=== PATIENT | female | born 1990 | race Two or more races ===

== ENCOUNTER 2019-10-04 05:54 | Emergency (ER) | payer MEDICAID ==
[~2019-10-04] VITALS: Ht 157.5 cm; Wt 65.8 kg
[2019-10-04 06:02] VITALS: BP 109/71
[2019-10-04] MEDS ORDERED: IPRATROPIUM BROM 0.5 MG/2.5ML INH SOL ONE (07:40)
[2019-10-04] MEDS ORDERED: ALBUTEROL SULF 2.5 MG/0.5ML(0.5%) NEB SOLN ONE (07:40)
[2019-10-04] MEDS ORDERED: methylPREDNISolone SOD SUCC 125 MG/2 ML VL IM ONE (07:45)
[2019-10-04] MEDS ORDERED: IPRATROPIUM BROM 0.5 MG/2.5ML INH SOL NEB ONE (07:45)
[2019-10-04] MEDS ORDERED: ALBUTEROL SULF 2.5 MG/0.5ML(0.5%) NEB SOLN NEB ONE (07:45)
[2019-10-04] MEDS ORDERED: KETOROLAC TROMETH 60MG/2ML VIAL IM ONE (08:00)
== END 2019-10-04 08:34 | disposition home or self-care (01) ==
LOC: ER 05:54
DX: S33.5XXA Sprain of ligaments of lumbar spine, initial encounter (principal); X58.XXXA Exposure to other specified factors, initial encounter; Y93.89 Activity, other specified; Y99.8 Other external cause status; Y92.89 Other specified places as the place of occurrence of the external cause
CPT/HCPCS: 81002; 81025; 96372; 99283; J1885

== ENCOUNTER 2024-05-29 10:41 | Emergency (ER) | payer BC ==
[~2024-05-29] VITALS: Ht 154.9 cm; Wt 72.4 kg
[~2024-05-29 10:41] MED LIST: IBUP1TAB5 PO
[2024-05-29 13:54] VITALS: BP 118/72; PULSE 76; RESP 16; TEMP 99; O2SAT 99
[2024-05-29] MEDS ORDERED: CEPH500C PO (14:21)
== END 2024-05-29 14:27 | disposition home or self-care (01) ==
LOC: ER 10:41
DX: H00.011 Hordeolum externum right upper eyelid (principal); Z79.1 Long term (current) use of non-steroidal anti-inflammatories (NSAID); Z79.2 Long term (current) use of antibiotics

== ENCOUNTER 2024-09-13 16:57 | Emergency (ER) | payer BC ==
[~2024-09-13] VITALS: Ht 154.9 cm; Wt 73.9 kg
[~2024-09-13 16:57] MED LIST changes: +CEPH500C PO
[2024-09-13 18:20] LABS: Urine Bacteria None Seen /hpf (None Seen)
[2024-09-13 18:35] VITALS: BP 113/74; PULSE 64; RESP 17; TEMP 98.1; O2SAT 100
[2024-09-13 18:55] LABS: Urine Blood TRACE /uL (Negative); Urine Clarity Turbid (Clear); Urine Color Yellow (Yellow); Urine Mucus FEW (None Seen); Urine Protein, UAD TRACE (Negative); Urine Specific Gravity 1.029 (1.001-1.035); Urine Urobilinogen Normal (Negative); Urine WBC 7 /hpf (0 - 5); Urine pH 5.5 (5.0-9.0)
[2024-09-13] MEDS: KETOROLAC TROMETH 60MG/2ML VIAL IM ONE (20:22)
[2024-09-13] MEDS ORDERED: TIZA4TAB9 PO (20:55)
[2024-09-13] MEDS ORDERED: DICL50TA2 PO (20:55)
--- NOTE | 2024-09-13 20:55 | ED.PDOC ---
Back pain HPI HPI Comments This is a 34-year-old female presents to the ED chief complaint low back pain. Patient states symptoms started around 5 days ago and has been case with the getting worse over the past 24 hours with little relief from [id number] medications, heat and ice and stretching. Patient states unknown injury. Patient denies numbness, weakness, saddle anesthesia, or loss of bowel and bladder control. Chief Complaint: Back Pain Time Seen by MD: 18:20 Primary Care Provider: Deborah Morris Notes: Nurses Notes, Medications, Allergies Allergies: Coded Allergies: NO KNOWN ALLERGIES (Unverified , 07/02/14) Home Meds Active Scripts Tizanidine Hydrochloride (Zanaflex) 4 Mg Tab, 1 TAB PO QPM PRN for 7 Days, #7 TAB Prov:HERNANDEZ SHEETS IMAGING CENTER MANAGER 09/13/24 Diclofenac Potassium (Diclofenac Potassium) 50 Mg Tab, 1 TAB PO BID PRN for 7 Days, #14 TAB Prov:HERNANDEZ SHEETS IMAGING CENTER MANAGER 09/13/24 Cephalexin Monohydrate (Cephalexin) 500 Mg Cap, 1 CAP PO QID for 5 Days, #20 CAP 0 Refills Prov:GABBY CHRISTIANSEN WORKFORCE INVESTMENT ACT CAREER MANAGER 05/29/24 Ibuprofen Micronized (Ibuprofen) 600 Mg Tab, 600 MG PO Q8HPRN PRN, #20 TAB Prov:RADHA MYERS PAC 03/03/24 Mode of Arrival: Ambulatory Past Medical History PAST MEDICAL HISTORY: Denies Surgical History: Denies all surgeries DATABASE ADMINISTRATION ASSOCIATE History: No Pertinent DATABASE ADMINISTRATION ASSOCIATE History Family History Family History: Unknown Social History Smoker: Non-Smoker Lives In: Home Constitutional: denies: chills, diaphoresis, fatigue, fever, malaise, sweats, weakness, others EENTM: denies: blurred vision, double vision, ear bleeding, ear discharge, ear drainage, ear pain, ear ringing, eye pain, eye redness, hearing loss, mouth pain, mouth swelling, nasal discharge, nose bleeding, nose congestion, nose pain, photophobia, tearing, throat pain, throat swelling, voice changes, others Respiratory: denies: cough, hemoptysis, orthopnea, SOB at rest, shortness of breath, SOB with excertion, stridor, wheezing, others Cardiovascular: denies: chest pain, dizzy spells, diaphoresis, Dyspnea on exertion, edema, irregular heart beat, left arm pain, lightheadedness, palpitations, PND, syncope, others Gastrointestinal: denies: abdomen distended, abdominal pain, blood streaked bowels, constipated, diarrhea, dysphagia, difficulty swallowing, hematemesis, melena, nausea, poor appetite, poor fluid intake, rectal bleeding, rectal pain, vomiting, others Genitourinary: denies: abnormal vagina bleeding, burning, dyspareunia, dysuria, flank pain, frequency, hematuria, incontinence, pain, , vagina discharge, urgency, others Neurological: denies: dizziness, fainting, headache, left sided numbness, left sided weakness, numbness, paresthesia, pre-existing deficit, right sided numbness, right sided weakness, seizure, speech problems, tingling, tremors, w eakness, others Musculoskeletal: reports: back pain; denies: gout, joint pain, joint swelling, muscle pain, muscle stiffness, neck pain, others Integumetry: denies: bruises, change in color, change in hair/nails, dryness, laceration, lesions, lumps, rash, wounds, others Allergic/Immunocompromised: denies: Difficulty Healing, Frequent Infections, Hives, Itching, others Hematologic/Lymphatic: denies: anemia, blood clots, easy bleeding, easy bruising, swollen glands, others Endocrine: denies: excessive hunger, excessive sweating, excessive thirst, excessive urination, flushing, intolerance to cold, intolerance to heat, unexplained weight gain, unexplained weight loss, others Psychiatric: denies: anxiety, bipolar disorder, depression, hopeless, panic disorder, schizophrenia, sleepless, suicidal, others Physical Exam General Appearance: No Apparent Distress, Normal HEENT: Pharynx Normal Neck: Full Range of Motion, Non-Tender Respiratory: Lungs Clear, No Respiratory Distress, Normal Breath Sounds Cardiovascular: No Murmur, Normal Peripheral Pulses, Regular Rate/Rhythm Breast Exam: Deferred Gastrointestinal: Non Tender, Soft Genitalia: Deferred Pelvic: Deferred Rectal: Deferred Extremities: Normal capillary refill, Normal inspection, Normal range of motion, Non-tender, No pedal edema Musculoskeletal : Location: Bilateral Extremity Location: Back (No tenderness, crepitus or step-offs along lumbar spine L1 through L5. Noted moderate spasms bilateral paraspinal muscles L1 through L5. Strength sensory and motion intact distal. Negative straight leg raise bilateral. Positive pedal pulses bilateral.) Apperance: Normal Neurologic: Alert, return to vendor II-XII nml as Tested, No Motor Deficits, Normal Affect, Normal Mood, No Sensory Deficits Cerebellar Function: Normal Reflexes: Normal Skin: Dry, Normal Color, Warm Lymphatic: No Adenopathy Was a procedure done? Was a procedure done?: No Back Pain Differential Dx Differential Diagnosis: Fracture, Musculoskeletal Pain X-Ray, Labs, Meds, VS Vital Signs Date Time Temp Pulse Resp B/P (MAP) Pulse Ox O2 Delivery O2 Flow Rate FiO2 09/13/24 18:35 98.1 64 17 113/74 (87) 100 98.1 09/13/24 18:35 64 17 100 Room Air 09/13/24 17:22 98.1 64 17 113/74 (87) 100 Lab Test 09/13/24 17:20 Range/Units Urine Color Yellow Yellow Urine Clarity Turbid H Clear Urine pH 5.5 5.0-9.0 Urine Specific [place] 1.029 1.001-1.035 Urine Protein Trace H Negative Urine Ketones Negative Negative Urine Blood Trace H Negative /uL Urine Nitrite Negative Negative Urine Bilirubin Negative Negative Urine Urobilinogen Normal Negative mg/dL Urine Leukocyte Esterase Negative Negative /uL Urine RBC 2 0 - 4 /hpf Urine WBC 7 0 - 5 /hpf Urine Squamous Epithelial Cells Mod <5 /hpf Urine Bacteria None seen None Seen /hpf Urine Mucus Few None Seen Urine Glucose Normal Normal mg/dL X-Ray, Labs, Meds, VS Comment Patient given Toradol 60 mg IM reports improvement in pain with improvement in function. Patient requesting discharge at this time. Trial tizanidine and ibuprofen script to her pharmacy on file. Advised to follow up with PCP in 2-3 days as necessary consider further imaging such as MRI if symptoms continue or worsening. ER return precautions given loss of bowel and bladder control or saddle anesthesia. Patient indicated understanding agrees with discharge plan of care. Urinalysis negative Time of 1ST Reevaluation: 20:49 Reevaluation 1ST: Improved Patient Education/Counseling: Diagnosis, Treatment, Prognosis, Need For Follow Up Family Education/Counseling: No Family Present Departure 1 Departure Time of Disposition: 20:53 Impression: Primary Impression: Musculoskeletal pain Disposition: 01 HOME / SELF CARE / HOMELESS Condition: Stable e-Prescriptions Tizanidine Hydrochloride (Zanaflex) 4 Mg Tab 1 TAB PO QPM PRN for 7 Days, #7 TAB Prov: HERNANDEZ SHEETS 09/13/24 Diclofenac Potassium (Diclofenac Potassium) 50 Mg Tab 1 TAB PO BID PRN for 7 Days, #14 TAB Prov: HERNANDEZ SHEETS 09/13/24 Discharged With: Spouse Critical Care Note Critical Care Time?: No Stability Stability form required: No HERNANDEZ SHEETS Sep 13, 2024 20:55
== END 2024-09-13 21:01 | disposition home or self-care (01) ==
LOC: ER 16:57
DX: M54.50 Low back pain, unspecified (principal); Z79.899 Other long term (current) drug therapy
CPT/HCPCS: 81001; 96372; 99283; J1885

== ENCOUNTER 2025-06-23 12:22 | Emergency (ER) | payer BC ==
[~2025-06-23] VITALS: Ht 167.6 cm; Wt 66.7 kg
--- NOTE | 2025-06-23 14:48 | ED.PDOC ---
History of Present Illness HPI Comments 35y F who presents to the ED for chief complaint of lower pelvic pain. Pt states she has been having diffuse pelvic pain described as cramping with associated nausea and fever for the past 1x week with associated diffuse back pain. Denies diarrhea, constipation, dysuria abnormal vaginal bleeding or discharge. Pt states she has had these symptoms in the past when her IUD became dislodged and she suffered an ectopic requiring right salpingectomy. Pt otherwise has noted stable vitals with temp of 98.6 F, RR 18, heart rate 91, BP of 126/78 and 02 sat of 97% on room air. Pt otherwise denies any other symptoms. Chief Complaint: Flu like Time Seen by MD: 14:46 Primary Care Provider: Deborah Morris Notes: Medications, Allergies Allergies: Coded Allergies: NO KNOWN ALLERGIES (Unverified , 07/02/14) Home Meds Active Scripts Ibuprofen Micronized (Ibuprofen) 800 Mg Tab, 800 MG PO Q8HP PRN, #30 TAB Prn pain or fever. Take with food. Prov:YOLANDA HIGHTOWER MD 06/23/25 Ciprofloxacin HCl (Ciprofloxacin Hydrochlori) 500 Mg Tab, 500 MG PO BID for 7 Days, #14 TAB Prov:YOLANDA HIGHTOWER MD 06/23/25 Cephalexin Monohydrate (Cephalexin) 500 Mg Cap, 1 CAP PO QID for 5 Days, #20 CAP 0 Refills Prov:GABBY CHRISTIANSEN ESCALATOR MECHANIC 05/29/24 Ibuprofen Micronized (Ibuprofen) 600 Mg Tab, 600 MG PO Q8HPRN PRN, #20 TAB Prov:RADHA MYERS PAC 03/03/24 Information Source: Patient, Significant Other Mode of Arrival: Ambulatory Past Medical History PAST MEDICAL HISTORY: Denies WORK ENVIRONMENT SAFETY INSPECTOR History: Ectopic , Other (R salpingectomy, ectopic ) Family History Family History: Reviewed,noncontributory to illness, Unknown Social History Smoker: Non-Smoker Alcohol: Denies ETOH Use Drugs: Denies Drug Use Lives In: Home All Other Systems: Reviewed and Negative (see HPI) Physical Exam General Appearance: No Apparent Distress HEENT: Other (Pupils and face symmetric. Moist mucous membranes.) Neck: Full Range of Motion, Normal Inspection Respiratory: Lungs Clear, No Accessory Muscle Use, No Respiratory Distress, Normal Breath Sounds Cardiovascular: No Edema, No JVD, Regular Rate/Rhythm Breast Exam: Deferred Gastrointestinal: Soft, Suprapubic, Tenderness Genitalia: Deferred Pelvic: Deferred Rectal: Deferred Extremities: Normal inspection, Normal range of motion, Non-tender, No pedal edema Neurologic: Alert (Oriented x4), Normal Affect, Normal Mood, Other (Ambulatory) Cerebellar Function: NOT DONE Reflexes: NOT DONE Skin: Dry, Normal Color, Warm Lymphatic: NOT DONE Was a procedure done? Was a procedure done?: No Differential Dx Considerations may include: ectopic , UTI, , dislodged IUD, ovarian cyst, ovarian torsion, among others X-Ray, Labs, Meds, VS Vital Signs Date Time Temp Pulse Resp B/P (MAP) Pulse Ox O2 Delivery O2 Flow Rate FiO2 06/23/25 15:31 84 19 103/71 06/23/25 15:27 84 16 98 Room Air 06/23/25 15:27 98.4 84 16 103/71 (82) 98 98.4 06/23/25 12:29 98.6 91 18 126/78 97 98.6 Lab Test 06/23/25 16:30 06/23/25 14:41 Range/Units Urine Color Yellow Yellow Urine Clarity Turbid H Clear Urine pH 6.0 5.0-9.0 Urine Specific [place] 1.015 1.001-1.035 Urine Protein Trace H Negative Urine Ketones 3+ H Negative Urine Blood 1+ H Negative /uL Urine Nitrite Negative Negative Urine Bilirubin Negative Negative Urine Urobilinogen 2 H Negative mg/dL Urine Leukocyte Esterase 3+ Negative /uL Urine RBC 6 0 - 4 /hpf Urine Microscopic WBC 79 H 0-5 /HPF Urine Squamous Epithelial Cells Few <5 /hpf Urine Bacteria Few H None Seen /hpf Urine Mucus Few None Seen Urine Glucose Normal Normal mg/dL Urine Test Negative Negative White Blood Count 10.5 4.4-10.8 10^3/uL Red Blood Count 4.85 4.0-5.20 10^6/uL Hemoglobin 14.4 12.2-16.2 g/dL Hematocrit 41.7 36.0-46.0 % Mean Corpuscular Volume 86.0 80.0-100.0 fL Mean Corpuscular Hemoglobin 29.7 28.0-32.0 pg Mean Corpuscular Hemoglobin Concent 34.6 32.0-36.0 g/dL Red Cell Distribution Width 13.5 11.8-14.3 % Platelet Count 276 140-450 10^3/uL Mean Platelet Volume 8.8 6.9-10.8 fL Neutrophils (%) (Auto) 66.5 37.0-80.0 % Lymphocytes (%) (Auto) 20.6 10.0-50.0 % Monocytes (%) (Auto) 11.5 0.0-12.0 % Eosinophils (%) (Auto) 0.7 0.0-7.0 % Basophils (%) (Auto) 0.7 0.0-2.0 % Neutrophils # (Auto) 7.0 1.6-8.6 10 ^3/uL Lymphocytes # (Auto) 2.2 0.4-5.4 10 ^3/uL Monocytes # (Auto) 1.2 0-1.3 10 ^3/uL Eosinophils # (Auto) 0.1 0-0.8 10 ^3/uL Basophils # (Auto) 0.1 0-0.2 10 ^3/uL Nucleated Red Blood Cells 0.1 % Sodium Level 136 136-145 mmol/L Potassium Level 4.0 3.5-5.1 mmol/L Chloride Level 99 98-107 mmol/L Carbon Dioxide Level 26 20-31 mmol/L Anion Gap 11 5-15 Blood Urea Nitrogen 7 L 9-23 mg/dL Creatinine 0.76 0.550-1.02 mg/dL Glomerular Filtration Rate Calc 103 >90 mL/min BUN/Creatinine Ratio 9.2 L 10.0-20.0 Serum Glucose 80 74-106 mg/dL Calcium Level 9.6 8.7-10.4 mg/dL Current Medications Medications (Trade) Dose Ordered Sig/Doe Route Start Time Stop Time Status Last Admin Sodium Chloride 1,000 ml @ 1,000 mls/hr Q1H ONCE IV 06/23/25 14:45 06/23/25 15:44 DC 06/23/25 15:30 Morphine Sulfate 4 mg ONCE ONCE IV 06/23/25 14:45 06/23/25 14:46 DC 06/23/25 15:31 Ondansetron HCl (Zofran) 4 mg ONCE ONCE IV 06/23/25 14:45 06/23/25 14:46 DC 06/23/25 15:[address] - [address] Ph: [phone] DIAGNOSTIC IMAGING Diagnostic Imaging Report : [id number] Signed PATIENT: BARBARA VAZQUEZ ACCT: [id number] UNIT: [id number] : 1990 LOC: ER ROOM / BED: / AGE / SEX: 35 / F ADM STATUS: REG ER SERVICE [id number] ORDERING PHYSICIAN: YOLANDA HIGHTOWER MD PROCEDURE(s): PELUS - PELVIC REASON: pelvic pain ORDER NUMBER(s): [id number], ACCESSION NUMBER(s): [id number] INDICATION: pelvic pain TECHNIQUE: Multiple real-time grayscale transabdominal and transvaginal sonographic images along with color and duplex Doppler of the uterus and ovaries were obtained. COMPARISON: None FINDINGS: The uterus measures 7 x 3.7 x 4.6 cm. The endometrial stripe measures 0.3 cm. IUD noted in the endometrial canal. The right ovary measures 3.3 x 2.6 x 2.6 cm. Volume of the right ovary is 11.7 cc. A 2 by 1.4 x 1.9 cm complex nodule in the right ovary may represent an involuting follicle. Hypoechoic structure in the right ovary with peripheral vascularity. The left ovary measures 2.7 x 1.8 x 1.9 cm. Volume a left ovary is 4.9 cc Subsequent color and duplex Doppler interrogation of the ovaries demonstrated symmetric vascular flow to both ovaries, though this does not exclude the possibility of torsion due to the dual blood supply. IMPRESSION: 1. IUD noted in the endometrial canal. 2. Hypoechoic structure in the right ovary with peripheral vascularity. 3. This may represent a corpus luteum. 4. A 2 by 1.4 x 1.9 cm complex nodule in the right ovary may represent an involuting follicle. X-Ray, Labs, Meds, VS Comment 45-year-old female with history of IUD dislodgement, ectopic and right salpingectomy complaining of pelvic pain, back pain, fever and nausea for the past week Vitals unremarkable Exam remarkable for suprapubic tenderness to palpation Rhythm strip independently interpreted by me: Sinus rhythm, rate 91, no ectopy. Pelvic ultrasound shows IUD properly placed, right ovarian probable corpus luteum and involuting follicle CBC and metabolic panel unremarkable, UA abnormal consistent with UTI, urine negative Patient treated with the following in the ED: 1 L 0.9 normal saline IV bolus, morphine 4 mg IV, Zofran 4 mg IV, Levaquin 500 mg IV On re-evaluation, pain has improved. Vitals were stable. Patient appears stable for discharge with close outpatient follow-up with her primary doctor or OBGYN. Rx Cipro, ibuprofen, Zofran Time of 1ST Reevaluation: 18:23 Reevaluation 1ST: Improved Patient Education/Counseling: Diagnosis, Treatment, Need For Follow Up Family Education/Counseling: Diagnosis, Treatment, Need For Follow Up SEPSIS Sepsis Screen Date sepsis recognized/suspect: Jun 23, 2025 Time Sepsis recognized/suspect: 1229 Recent Procedure: No On Antibiotic Therapy: No Respiratory Rate >20: No Heart Rate >90: Yes Temp<36 C (96.8 F) or >38.3 C: No SBP <90 or MAP <65 mmHG: No New Acute Mental Status Change: No Is the patient on CPAP, BIPAP,: No SEPSIS EXCLUSION NOTE: Sepsis Exclusion Note: Patient presents with SIRS criteria, but the SIRS response is attributed to [pain ], not sepsis. Sepsis bundle is not initiated at this time, due to this reason. Further management will focus on the treatment of the above condition (s). Physician Orders Pelvic (06/23/25 14:37) Transvaginal Us Non Ob (06/23/25 ) Vital Signs Date Time Temp Pulse Resp B/P (MAP) Pulse Ox O2 Delivery O2 Flow Rate FiO2 06/23/25 15:31 84 19 103/71 06/23/25 15:27 84 16 98 Room Air 06/23/25 15:27 98.4 84 16 103/71 (82) 98 98.4 06/23/25 12:29 98.6 91 18 126/78 97 98.6 Laboratory Tests Test 06/23/25 14:41 White Blood Count 10.5 10^3/uL (4.4-10.8) Medications Medications Dose Ordered Sig/Doe Route Start Time Stop Time Status Last Admin Dose Admin Morphine Sulfate 4 mg ONCE ONCE IV 06/23/25 14:45 06/23/25 14:46 DC 06/23/25 15:31 Ondansetron HCl 4 mg ONCE ONCE IV 06/23/25 14:45 06/23/25 14:46 DC 06/23/25 15:30 Sodium Chloride 1,000 ml @ 1,000 mls/hr Q1H ONCE IV 06/23/25 14:45 06/23/25 15:44 DC 06/23/25 15:30 Departure 1 Departure Time of Disposition: 19:23 Impression: Primary Impression: UTI (urinary tract infection) Disposition: HOME / SELF CARE / HOMELESS Condition: Stable Additional Instructions: Your blood tests were unremarkable. Your urine test showed you have a urinary tract infection. test was negative. This is likely to be the cause of your symptoms. Your ultrasound was unremarkable, showing the IUD properly placed within the endometrial canal. There was no evidence of ectopic . I have enclosed the ultrasound report below to show your primary doctor or OBGYN when you follow-up. I have prescribed antibiotics, pain and nausea medication. Follow-up with your primary doctor or OBGYN in 1-2 days. Return to ER for persistent or worsening symptoms. [place] [address] Ph: [phone] DIAGNOSTIC IMAGING Diagnostic Imaging Report : [id number] Signed PATIENT: BARBARA VAZQUEZ ACCT: [id number] UNIT: [id number] : 1990 LOC: ER ROOM / BED: / AGE / SEX: 35 / F ADM STATUS: REG ER SERVICE [id number] ORDERING PHYSICIAN: YOLANDA HIGHTOWER MD PROCEDURE(s): PELUS - PELVIC REASON: pelvic pain ORDER NUMBER(s): [id number], ACCESSION NUMBER(s): [id number] INDICATION: pelvic pain TECHNIQUE: Multiple real-time grayscale transabdominal and transvaginal sonographic images along with color and duplex Doppler of the uterus and ovaries were obtained. COMPARISON: None FINDINGS: The uterus measures 7 x 3.7 x 4.6 cm. The endometrial stripe measures 0.3 cm. IUD noted in the endometrial canal. The right ovary measures 3.3 x 2.6 x 2.6 cm. Volume of the right ovary is 11.7 cc. A 2 by 1.4 x 1.9 cm complex nodule in the right ovary may represent an involuting follicle. Hypoechoic structure in the right ovary with peripheral vascularity. The left ovary measures 2.7 x 1.8 x 1.9 cm. Volume a left ovary is 4.9 cc Subsequent color and duplex Doppler interrogation of the ovaries demonstrated symmetric vascular flow to both ovaries, though this does not exclude the possibility of torsion due to the dual blood supply. IMPRESSION: 1. IUD noted in the endometrial canal. 2. Hypoechoic structure in the right ovary with peripheral vascularity. 3. This may represent a corpus luteum. 4. A 2 by 1.4 x 1.9 cm complex nodule in the right ovary may represent an involuting follicle. e-Prescriptions Ibuprofen Micronized (Ibuprofen) 800 Mg Tab 800 MG PO Q8HP PRN, #30 TAB Prn pain or fever. Take with food. Prov: YOLANDA HIGHTOWER MD 06/23/25 Ciprofloxacin HCl (Ciprofloxacin Hydrochlori) 500 Mg Tab 500 MG PO BID for 7 Days, #14 TAB Prov: YOLANDA HIGHTOWER MD 06/23/25 Discharged With: Significant Other Critical Care Note Critical Care Time?: No Stability Stability form required: No Heart Score Heart Score: Heart Score Response (Comments) Value History N/A 0 EKG N/A 0 Age N/A 0 Risk Factors N/A 0 Troponin N/A 0 Total 0 I personally scribed for YOLANDA HIGHTOWER MD ([email or web address]) on 06/23/25 at 14:48. Electronically submitted by Gama Cárdenas ([email or web address]). YOLANDA HIGHTOWER MD Jun 23, 2025 14:48
[2025-06-23 15:03] LABS: Hematocrit 41.7 % (36.0-46.0); Hemoglobin 14.4 g/dL (12.2-16.2); Mean Corpuscular Hemoglobin 29.7 pg (28.0-32.0); Mean Corpuscular Volume 86.0 fL (80.0-100.0); Nucleated Red Blood Cells % 0.1 %
[2025-06-23 15:08] LABS: Chloride 99 mmol/L (98-107); Potassium 4.0 mmol/L (3.5-5.1)
[2025-06-23 15:09] LABS: Anion Gap 11 (5-15); Calcium 9.6 mg/dL (8.7-10.4); Carbon Dioxide 26 mmol/L (20-31)
[2025-06-23 15:14] LABS: BUN/Creatinine Ratio 9.2 (10.0-20.0); Blood Urea Nitrogen 7 mg/dL (9-23); Glucose 80 mg/dL (74-106); Sodium 136 mmol/L (136-145)
[2025-06-23 15:27] VITALS: TEMP 98.4; O2SAT 98
[2025-06-23] MEDS: MORPHINE SULFATE 4 MG/ML SYR/VIAL ONE (15:30)
[2025-06-23] MEDS: ONDANSETRON HCL 4 MG/2 ML VIAL IV ONE (15:30)
[2025-06-23] MEDS: ONDANSETRON HCL 4 MG/2 ML VIAL ONE (15:30)
[2025-06-23] MEDS: SODIUM CHLORIDE 0.9% 1,000 ML IV ONE (15:30)
[2025-06-23 15:31] VITALS: BP 103/71; PULSE 84; RESP 19
[2025-06-23] MEDS: MORPHINE SULFATE 4 MG/ML SYR/VIAL IV ONE (15:31)
[2025-06-23 16:48] LABS: Urine Protein, UAD TRACE (Negative)
[2025-06-23] MEDS ORDERED: CIPR-214 PO (18:28)
[2025-06-23] MEDS ORDERED: IBUP-1455 PO (18:28)
--- NOTE | 2025-06-23 18:57 | DVH ---
INDICATION: pelvic pain TECHNIQUE: Multiple real-time grayscale transabdominal and transvaginal sonographic images along with color and duplex Doppler of the uterus and ovaries were obtained. COMPARISON: None FINDINGS: The uterus measures 7 x 3.7 x 4.6 cm. The endometrial stripe measures 0.3 cm. IUD noted in the endometrial canal. The right ovary measures 3.3 x 2.6 x 2.6 cm. Volume of the right ovary is 11.7 cc. A 2 by 1.4 x 1.9 cm complex nodule in the right ovary may represent an involuting follicle. Hypoechoic structure in t he right ovary with peripheral vascularity. The left ovary measures 2.7 x 1.8 x 1.9 cm. Volume a left ovary is 4.9 cc Subsequent color and duplex Doppler interrogation of the ovaries demonstrated symmetric vascular flow to both ovaries, though this does not exclude the possibility of torsion due to the dual blood suppl y. IMPRESSION: 1. IUD noted in the endometrial canal. 2. Hypoechoic structure in the right ovary with peripheral vascularity. 3. This may represent a corpus luteum. 4. A 2 by 1.4 x 1.9 cm complex nodule in the right ovary may represent an involuting follicle.
== END 2025-06-24 00:10 | disposition home or self-care (01) ==
LOC: ER 12:22
DX: N39.0 Urinary tract infection, site not specified (principal)
CPT/HCPCS: 36415; 76830; 76856; 80048; 81001; 81025; 85025; 96361; 96365; 96375; 99285; J1956; J2270; J2405; J7030